=== PATIENT | male | born 1970 | race Caucasian/White ===

== ENCOUNTER → 2017-06-22 | Outpatient (CLI) | payer OTHER ==
[~2017-06-22] VITALS: Ht 177.8 cm; Wt 104.3 kg
[~2017-06-22] MED LIST: LIPITOR40 MG PO; METFORMIN HCL500 MG PO; NAPROXEN500 MG PO; PREDNISONE20 MG PO
[2017-06-22 10:33] LABS: CHLORIDE 107 MEQ/L (99-109); SODIUM 141 MEQ/L (136-147)
[2017-06-22 10:38] LABS: CREATININE 0.7 MG/DL (0.6-1.3); GFR ESTIMATE (CALCULATED) > 59 mL/min/ (58.99-99999); GLUCOSE 125 mg/dL (70-99); UREA NITROGEN (BUN) 15 mg/dL (9-23)
== END | disposition home or self-care (01) ==
LOC: AMB 09:00
PROVIDERS: Internal Medicine
DX: K29.70 Gastritis, unspecified, without bleeding (principal); R10.13 Epigastric pain; E11.9 Type 2 diabetes mellitus without complications; Z79.84 Long term (current) use of oral hypoglycemic drugs; Z87.891 Personal history of nicotine dependence
CPT/HCPCS: 80048; 82948; 88305; 88342 TC; 93005